=== PATIENT | female | born 1950 | race Caucasian/White ===

== ENCOUNTER 2021-04-18 10:10 | Emergency (ER) | payer MEDICARE, OTHER, SELFPAY ==
[2021-04-18 10:14] VITALS: BP 171/90; PULSE 71; RESP 16; TEMP 36.2; O2SAT 99; BMI 36.3
--- NOTE | 2021-04-18 10:27 | EKG12_ITS ---
Test Reason : Blood Pressure : / mmHG Vent. Rate : 049 BPM Atrial Rate : 049 BPM P-R Int : 184 ms QRS Dur : 078 ms QT Int : 430 ms P-R-T Axes : 049 -33 050 degrees QTc Int : 388 ms Sinus bradycardia Left axis deviation Abnormal ECG Confirmed by DIXIE ZALDIVAR, ROSANNE ([id number]), news assignment editor INDERJIT SARKAR ([id number]) on 04/22/2021 1:34:21 PM Referred By: CARLTON Confirmed By:ROSANNE COLIN MD
[2021-04-18] MEDS: Famotidine 200 MG/20 ML MDV 20 MG in 0.9% Normal Saline (Pres. free 8 ML 300 MG IV (10:43)
[2021-04-18 10:48] LABS: Absolute Lymphocyte Count 1.65 X10^3/uL (0.83-4.51); Absolute Neutrophil Count 5.1 X10^3/uL (2.0-7.7); Basophil# 0.04 X10^3/uL; Basophil% 0.5 % (0-1); Eosinophils% 1.4 % (0-5); Hemoglobin 13.6 g/dL (12.0-15.0); Lymphocyte # 1.65 X10^3/ul (0.83-4.51); Lymphocyte % 22.3 % (19-41); Mean Corp Hgb Conc 32.4 g/dL (32-36); Mean Corpuscular Hgb 30.7 pg (27.0-32.0); Mean Corpuscular Volume 94.8 fL (81-99); Mean Platelet Vol. 9.7 fl (6.2-12.0); Monocyte# 0.45 X10^3/uL; Monocyte% 6.1 % (0-10); NRBC Flagged by Analyzer 0 % (0-5); Neutrophil # 5.11 X10^3/uL (2.7-7.7); Neutrophil % 69.2 % (47-70); Platelet Count 237 K/mm3 (150-450); RBC Distribution Width CV 13.7 % (11.6-14.6); RBC Distribution Width SD 47.8 fl (35.1-43.9); Red Blood Count 4.43 M/mm3 (4.2-5.4); White Blood Count 7.4 K/mm3 (4.4-11.0)
[2021-04-18 10:55] VITALS: BP 159/75; PULSE 51; RESP 16; O2SAT 97
--- NOTE | 2021-04-18 10:57 | RAD_ITS ---
STUDY: X-RAY CHEST REASON FOR EXAM: Female, 71 years old. Nausea and body aches. TECHNIQUE: Single AP portable view of the chest. COMPARISON: Comparison is made with prior study dated 12/07/2011. FINDINGS: EKG electrodes are seen. The lungs are clear and expanded. There is no demonstrated pleural abnormality. Normal size heart. Normal mediastinum and lola. Normal visualized pulmonary arteries. There is atherosclerotic tortuosity of the aortic arch and descending thoracic aorta. Normal visualized thoracic spine. Normal visualized ribs, clavicles, and shoulders. There is no demonstrated abnormality of the visualized soft tissue structures of the upper abdomen. RAD/Chest 1 View (Portable) IMPRESSION: No acute abnormality is seen. Electronically Signed: Sai Hwang MD at 11:21 EDT , Service support ,
[2021-04-18 11:03] LABS: AST(SGOT) 12 U/L (15-37); Alanine Aminotransfer ALT/SGPT 28 U/L (13-56); Albumin, Serum 3.8 g/dL (3.2-5.0); Alkaline Phosphatase 77 U/L (45-117); Anion Gap 7 (5-15); BUN 12 mg/dL (7-18); BUN/Creat Ratio 12.2 RATIO (10-20); Calcium,Total 9.5 mg/dL (8.5-10.1); Chloride 104 mmol/L (98-107); Creatinine, Serum 0.98 mg/dL (0.55-1.02); EST Glomerular Filtration Rate 60 mL/min (>60); Est Glom Filt Rate - Afr Amer 72 mL/min (>60); Estimated Creatinine Clearance 42.85 ml/min; Globulin 3.7 g/dL (2.2-4.2); Glucose 120 mg/dL (74-106); Potassium 4.3 mmol/L (3.5-5.1); Protein, Total 7.5 g/dL (6.4-8.2); Sodium Level 139 mmol/L (136-145); Troponin-I HS 20 pg/mL (3.0-54.0)
--- NOTE | 2021-04-18 11:49 | EX.ED.DYSGE1 ---
HPI History of Present Illness Chief Complaint: General Illness Narrative Narrative: Patient presents with generalized weakness for the past week. She has no chest pain or shortness of breath she has some indigestion. She is on a PPI and has taken Carafate with some relief. She has no back pain or tearing sensation. She has no abdominal pain. She has no pleuritic component. No lower extremity edema or calf pain. No recent fever chills cough or congestion. . PFSH PFS Medical History (Updated 04/18/21 @ 11:[address] Adrian Henriquez MD) Cholecystectomy planned Hyperlipidemia Home Medications atorvastatin 20 mg PO QHS 09/07/13 [History Last Taken Unknown] esomeprazole magnesium [Nexium] 20 mg PO DAILY 09/07/13 [History Last Taken Unknown] nadolol 40 mg PO DAILY 09/07/13 [History Last Taken Unknown] sucralfate 1 g PO 4X/DAY 09/07/13 [History Last Taken Unknown] cholecalciferol (vitamin D3) [Vitamin D3] 25 mcg PO DAILY 04/18/21 [History Last Taken Unknown] lisinopril 2.5 mg PO DAILY 04/18/21 [History Last Taken Unknown] ondansetron HCl [Zofran] 4 mg PO Q8H #7 tab 04/18/21 [Rx Last Taken Unknown] Allergy/AdvReac Type Severity Reaction Status Date / Time No Known Allergies Allergy Verified 04/18/21 10:14 Surgical History (Updated 04/18/21 @ 10:46 by Hortencia Nguyen) History of hysterectomy Social History Smoking Status: Never smoker ROS ROS ED ROS Narrative Past medical history: Reviewed, significant for hypertension, hyperlipidemia, GERD Medications: Reviewed Social history: Noncontributory Review of systems: All systems negative except as indicated General: No fever. Generalized weakness as in HPI Eyes: No visual changes ENT: No upper airway congestion, normal voice Neck: No neck pain Cardiovascular: No chest pain Respiratory: No shortness of breath or cough Gastrointestinal: No abdominal pain. Some indigestion symptoms but no chest pain. Some nausea is present. Genitourinary: No dysuria Musculoskeletal: Denies myalgias no difficulty with ambulation Skin: No rash Neurological: No memory loss, confusion or any focal weakness Psych: No recent behavioral changes Hematologic: No easy bleeding or easy bruising EXAM Physical Exam Narrative Exam Narrative: Physical exam General: Well nourished, Well developed, No Acute Distress Head: Normocephalic, Atraumatic Eyes: Conjunctiva not pale ENT: Moist mucous membranes Neck: Supple, Nontender, No lymphadenopathy Cardiovascular: Regular rate, Regular rhythm Respiratory: No distress, CTA bilaterally Abdomen: Soft, Nontender, Nondistended Back: Nontender, Normal Inspection. Negative for: CVA tenderness Extremities: Nontender, No edema Skin: Normal color, No rash Neurological: Alert, Normal Strength, Normal Sensation Psychological: Normal affect Const Vital Signs: 04/18/21 10:14 04/18/21 10:49 04/18/21 10:55 Temperature 97.2 F L Temperature Source Temporal Pulse Rate 71 51 L Respiratory Rate 16 16 Respiratory Effort Normal Non-Labored Respiratory Pattern Normal Blood Pressure 171/90 H 159/75 H Blood Pressure Mean 117 103 Pulse Ox 99 97 Oxygen Delivery Method Room Air Room Air MDM MDM MDM Narrative Medical decision making narrative: Patient has a normal work-up including EKG, troponin and Covid testing. She appears well, she can follow-up with her PCP for more diagnostic tests. Lab Data Labs: Laboratory Results - last 24 hr 04/18/21 04/18/21 10:30 10:30 WBC 7.4 RBC 4.43 Hgb 13.6 Hct 42.0 MCV 94.8 MCH 30.7 MCHC 32.4 RDW Std Deviation 47.8 H RDW Coeff of Xochilt 13.7 Plt Count 237 MPV 9.7 Immature Gran % (Auto) 0.500 Neut % (Auto) 69.2 Lymph % (Auto) 22.3 [place] % (Auto) 6.1 Eos % (Auto) 1.4 Baso % (Auto) 0.5 Absolute Neuts (auto) 5.1 Absolute Lymphs (auto) 1.65 Nucleated RBC % 0 Sodium 139 Potassium 4.3 Chloride 104 Carbon Dioxide 28.0 Anion Gap 7 BUN 12 Creatinine 0.98 Estim Creat Clear Calc 42.85 Est GFR (MDRD) Af Amer 72 Est GFR (MDRD) Non-Af 60 BUN/Creatinine Ratio 12.2 Glucose 120 H Calcium 9.5 Total Bilirubin 0.80 AST 12 L ALT 28 Alkaline Phosphatase 77 Troponin I High Sens 20 Total Protein 7.5 Albumin 3.8 Globulin 3.7 Albumin/Globulin Ratio 1.0 Radiography Diagnostic Testing: Radiology Impression Chest X-Ray 04/18/21 10:57 IMPRESSION: No acute abnormality is seen. Electronically Signed: Sai Hwang MD at 11:21 EDT , Service support , Chest x-ray read by me and the radiologist does not show any acute abnormality. EKG Initial EKG: Attestation: I personally reviewed and interpreted this EKG as follows: Comments: Sinus rhythm with a rate of 49. Normal NC and QTc intervals. No ischemic changes. Interpreted by emergency doctor Discharge Plan Triage Chief Complaint: General Illness ED Provider: Adrian Henriquez Dx/Rx/DC Orders Clinical Impression: Episode of generalized weakness Instructions: ED Weakness (Uncertain Cause) Prescriptions: New ondansetron HCl [Zofran] 4 mg tablet 4 mg PO Q8H Qty: 7 RF: 0 No Action atorvastatin 20 MG tablet 20 mg PO QHS RF: 0 sucralfate 1 GM tablet 1 g PO 4X/DAY RF: 0 nadolol 40 MG tablet 40 mg PO DAILY RF: 0 esomeprazole magnesium [Nexium] 20 MG capsule 20 mg PO DAILY RF: 0 lisinopril 2.5 mg Tablet 2.5 mg PO DAILY RF: 0 cholecalciferol (vitamin D3) [Vitamin D3] 25 mcg (1,000 unit) Capsule 25 mcg PO DAILY RF: 0 Primary Care Provider: Dayana Gaviria Referrals: Dayana Gaviria MD [Primary Care Provider] - 2 Days Disposition Disposition: Home, Self Care
[2021-04-18 12:05] VITALS: BP 138/66; PULSE 47
== END 2021-04-18 12:05 | disposition home or self-care (01) ==
PROVIDERS: Emergency Provider Emergency Medicine; PCP Internal Medicine
DX: R53.1 Weakness (principal); Z20.822 Contact with and (suspected) exposure to COVID-19; K30 Functional dyspepsia; I10 Essential (primary) hypertension; E78.5 Hyperlipidemia, unspecified; K21.9 Gastro-esophageal reflux disease without esophagitis; Z79.899 Other long term (current) drug therapy
CPT/HCPCS: 71045; 80053; 84484; 85025; 87426; 93005; 96361; 96374; 99284; J7040; J3490